=== PATIENT | female | born 2000 ===

== ENCOUNTER 2024-07-12 09:53 | Outpatient (CLI) | payer OTHER ==
--- NOTE | 2024-07-13 11:00 | Ultrasound Report ---
LIMITED ULTRASOUND OF RIGHT BREAST: 07/12/2024 CLINICAL: Diffuse right breast pain. No prior exams were available for comparison. Real-time ultrasound of the right breast outer aspect was performed. More scale images of the real-t donna examination were reviewed. No significant abnormalities were seen sonographically in the right breast. IMPRESSION: NEGATIVE There is no sonographic evidence of malignancy. Exam findings were conveyed to the patient. Patient is advised to monitor for significant change. Cli nical follow-up as needed. Return to annual mammogram screening schedule is recommended. Patient report strong family history with mother diagnosed with breast cancer at age 42. Screening ma mmogram can commence at age 31. Consider genetic counseling/testing and screening breast MRI if clini tayler indicated. This exam was interpreted at Station ID: [id number]. Electronically Signed By: Ricardo Newberry M.D. [facility] [place]/:07/12/2024 10:42:20 letter sent: No_Letter ACR BI-RADS Category 1: Negative BI-RADS CATEGORY: (1) - 1 RECOMMENDATION: (ANNUAL) - Recommend routine annual screening mammography. [id number] return to screening LATERALITY: (B)
== END 2024-07-12 09:54 | disposition home or self-care (01) ==
LOC: DI 09:53
PROVIDERS: ATTEND Nurse Practitioner Family
DX: N64.4 Mastodynia (principal); Z80.3 Family history of malignant neoplasm of breast